=== PATIENT | female | born 1975 | race Caucasian/White ===

== ENCOUNTER 2021-10-30 14:15 | Emergency (ER) | payer SELFPAY ==
[2021-10-30] MEDS ORDERED: Sodium Chloride 0.9% 1,000 ML IV ONE (14:50)
[2021-10-30] MEDS ORDERED: Ondansetron 4 MG/2 ML SDV IVPUSH ONE (14:50)
[2021-10-30] MEDS ORDERED: HYDROmorphone 0.5 MG/0.5 ML Syringe IVPUSH ONE ×3 (14:50→18:13)
--- NOTE | 2021-10-30 15:47 | EDM.PDOC ---
ED HPI GENERAL MEDICAL PROBLEM - General Chief Complaint: Abdominal Pain Stated Complaint: ABDOMINAL PAIN SINCE YESTERDAY 1700 Time Seen by Provider: 10/30/21 14:45 Source of Information: Reports: Patient, Family History Limitations: Reports: No Limitations - History of Present Illness INITIAL COMMENTS - FREE TEXT/NARRATIVE: 46-year-old female with centralized abdominal pain for the past 24 hours. It started last night after supper, kept her awake most of the night and she tried to go to work today but she feels like she is bloated, developing more pain and pressure around the periumbilical area, and has developed some nausea. No radiation of pain, no vomiting. She had a normal bowel movement this morning. No fevers or chills, she does have a history of diverticulitis and also has had a cholecystectomy in the remote past. She is usually healthy. Onset: Gradual Duration: Hour(s): (24 hours of symptoms) Location: Reports: Abdomen (Center of her abdomen, periumbilical) Associated Symptoms: Reports: Other (Mild nausea is her only other symptom) Abdominal Pain Score (Numeric/FACES): 8 - Related Data Allergies Allergy/AdvReac Type Severity Reaction Status Date / Time Penicillins Allergy Tachycardia Verified 10/30/21 14:32 cefuroxime AdvReac Diarrhea Verified 10/30/21 16:53 Home Meds: Home Meds ALPRAZolam [Xanax] 0.25 mg PO TID 05/17/21 [History] Hydrochlorothiazide/Lisinopril [Lisinopril-HCTZ 20-12.5 MG] 1 tab PO DAILY 05/17/21 [History] Omeprazole 20 mg PO DAILY 05/17/21 [History] Venlafaxine [Effexor XR 24 Hr] 37.5 mg PO DAILY 05/17/21 [History] Past Medical History HEENT History: Reports: None Cardiovascular History: Reports: None Respiratory History: Reports: None Gastrointestinal History: Reports: Cholelithiasis, Diverticulosis, GERD HEAD CAGER History: Reports: Musculoskeletal History: Reports: None Neurological History: Reports: None Psychiatric History: Reports: None Endocrine/Metabolic History: Reports: Obesity/BMI 30+ Immunologic History: Reports: None Oncologic (Cancer) History: Reports: None Dermatologic History: Reports: Scleroderma - Infectious Disease History Infectious Disease History: Reports: Chicken Pox - Past Surgical History HEENT Surgical History: Reports: None Cardiovascular Surgical History: Reports: None Respiratory Surgical History: Reports: None GI Surgical History: Reports: Cholecystectomy, Colonoscopy Female Surgical History: Reports: Section Social & Family History - Tobacco Use Tobacco Use Status *Q: Current Every Day Tobacco User Years of Tobacco use: 25 Packs/Tins Daily: 1 - Caffeine Use Caffeine Use Comment: amaya - Recreational Drug Use Recreational Drug Use: No ED ROS GENERAL - Review of Systems Review Of Systems: See Below Constitutional: Reports: Malaise. Denies: Fever, Chills HEENT: Reports: No Symptoms Respiratory: Reports: No Symptoms Cardiovascular: Reports: No Symptoms GI/Abdominal: Reports: Abdominal Pain, Distension, Nausea. Denies: Constipation, Diarrhea, Decreased Appetite, Vomiting : Reports: No Symptoms Skin: Reports: No Symptoms Neurological: Reports: No Symptoms ED EXAM, GI/ABD - Physical Exam Exam: See Below Exam Limited By: No Limitations General Appearance: Alert, Anxious, Mild Distress Eyes: Bilateral: Normal Appearance (No jaundice) Head: Atraumatic Neck: Supple, Non-Tender Respiratory/Chest: Lungs Clear Cardiovascular: Regular Rate, Rhythm, Tachycardia GI/Abdominal Exam: Normal Bowel Sounds, Soft, Guarding (Patient is very tender around the center of the abdomen with moderate guarding and mild rebound tende rness), Tender Neurological: Alert, Oriented Psychiatric: Anxious Skin Exam: Warm, Dry Course - Vital Signs Last Recorded V/S: Last Vital Signs Temp 98.1 F 10/30/21 14:29 Pulse 90 10/30/21 17:46 Resp 18 10/30/21 14:29 BP 107/70 10/30/21 17:46 Pulse Ox 94 L 10/30/21 16:12 - Orders/Labs/Meds Labs: Laboratory Tests 10/30/21 10/30/21 10/30/21 Range/Units 15:00 15:00 15:00 WBC 7.7 (4.5-11.0) K/uL RBC 2.95 L (3.30-5.50) M/uL Hgb 10.5 L (12.0-15.0) g/dL Hct 31.0 L (36.0-48.0) % MCV 105 H (80-98) fL MCH 36 H (27-31) pg MCHC 34 (32-36) % Plt Count 203 (150-400) K/uL Neut % (Auto) 70.4 H (36-66) % Lymph % (Auto) 19.6 L (24-44) % Ada % (Auto) 6.5 H (2-6) % Eos % (Auto) 3.0 (2-4) % Baso % (Auto) 0.5 (0-1) % Sodium 133 L (140-148) mmol/L Potassium 4.1 (3.6-5.2) mmol/L Chloride 96 L (100-108) mmol/L Carbon Dioxide 27 (21-32) mmol/L Anion Gap 14.1 H (5.0-14.0) mmol/L BUN 22 H (7-18) mg/dL Creatinine 1.2 H (0.6-1.0) mg/dL Est Cr Clr Drug Dosing 49.51 mL/min Estimated GFR (MDRD) 48 L (>60) Glucose 101 (74-106) mg/dL Lactic Acid 0.9 (0.4-2.0) mmol/L Calcium 9.5 (8.5-10.1) mg/dL Total Bilirubin 0.8 (0.2-1.0) mg/dL AST 31 (15-37) U/L ALT 47 (12-78) U/L Alkaline Phosphatase 71 (46-116) U/L Total Protein 7.1 (6.4-8.2) g/dL Albumin 3.7 (3.4-5.0) g/dL Globulin 3.4 (2.3-3.5) g/dL Albumin/Globulin Ratio 1.1 L (1.2-2.2) Lipase 56 L (73-393) U/L Urine Color (YELLOW) Urine Appearance (CLEAR) Urine pH (5.0-8.0) Ur Specific [place] (1.008-1.030) Urine Protein (NEGATIVE) mg/dL Urine Glucose (UA) (NEGATIVE) mg/dL Urine Ketones (NEGATIVE) mg/dL Urine Occult Blood (NEGATIVE) Urine Nitrite (NEGATIVE) Urine Bilirubin (NEGATIVE) Urine Urobilinogen (0.2-1.0) EU/dL Ur Leukocyte Esterase (NEGATIVE) Urine RBC (0-5) Urine WBC (0-5) Ur Epithelial Cells Amorphous Sediment Urine Bacteria Urine Mucus 11/30/21 Range/Units 15:37 WBC (4.5-11.0) K/uL RBC (3.30-5.50) M/uL Hgb (12.0-15.0) g/dL Hct (36.0-48.0) % MCV (80-98) fL MCH (27-31) pg MCHC (32-36) % Plt Count (150-400) K/uL Neut % (Auto) (36-66) % Lymph % (Auto) (24-44) % Ada % (Auto) (2-6) % Eos % (Auto) (2-4) % Baso % (Auto) (0-1) % Sodium (140-148) mmol/L Potassium (3.6-5.2) mmol/L Chloride (100-108) mmol/L Carbon Dioxide (21-32) mmol/L Anion Gap (5.0-14.0) mmol/L BUN (7-18) mg/dL Creatinine (0.6-1.0) mg/dL Est Cr Clr Drug Dosing mL/min Estimated GFR (MDRD) (>60) Glucose (74-106) mg/dL Lactic Acid (0.4-2.0) mmol/L Calcium (8.5-10.1) mg/dL Total Bilirubin (0.2-1.0) mg/dL AST (15-37) U/L ALT (12-78) U/L Alkaline Phosphatase (46-116) U/L Total Protein (6.4-8.2) g/dL Albumin (3.4-5.0) g/dL Globulin (2.3-3.5) g/dL Albumin/Globulin Ratio (1.2-2.2) Lipase (73-393) U/L Urine Color Yellow (YELLOW) Urine Appearance Clear (CLEAR) Urine pH 5.5 (5.0-8.0) Ur Specific [place] 1.010 (1.008-1.030) Urine Protein Negative (NEGATIVE) mg/dL Urine Glucose (UA) Negative (NEGATIVE) mg/dL Urine Ketones Negative (NEGATIVE) mg/dL Urine Occult Blood Negative (NEGATIVE) Urine Nitrite Negative (NEGATIVE) Urine Bilirubin Negative (NEGATIVE) Urine Urobilinogen 0.2 (0.2-1.0) EU/dL Ur Leukocyte Esterase Negative (NEGATIVE) Urine RBC Not seen (0-5) Urine WBC Not seen (0-5) Ur Epithelial Cells Few Amorphous Sediment Occasional Urine Bacteria Occasional Urine Mucus Not seen Meds: Medications Discontinued Medications Generic Name Dose Route Start Last Admin Trade Name Monica PRN Reason Stop Dose Admin Hydromorphone HCl 0.5 mg 10/30/21 14:50 10/30/21 15:13 Hydromorphone 0.5 Mg/0.5 Ml Syringe IVPUSH 10/30/21 14:51 0.5 mg ONETIME ONE Administration Hydromorphone HCl 0.5 mg 10/30/21 15:35 10/30/21 15:39 Hydromorphone 0.5 Mg/0.5 Ml Syringe IVPUSH 10/30/21 15:36 0.5 mg ONETIME ONE Administration Hydromorphone HCl 0.5 mg 10/30/21 18:13 10/30/21 18:26 Hydromorphone 0.5 Mg/0.5 Ml Syringe IVPUSH 10/30/21 18:14 0.5 mg ONETIME ONE Administration Sodium Chloride 1,000 mls @ 1,000 mls/hr 10/30/21 14:50 10/30/21 15:11 Normal Saline IV 10/30/21 15:49 1,000 mls/hr .BOLUS ONE Administration Metronidazole 500 mg/ Premix 100 mls @ 100 mls/hr 10/30/21 16:40 10/30/21 17:04 IV 10/30/21 17:39 100 mls/hr ONETIME ONE Administration Trimethoprim/Sulfamethoxazole 520 mls @ 250 mls/hr 10/30/21 18:00 10/30/21 17:11 20 ml/ Dextrose/Water IV 10/30/21 20:04 250 mls/hr ONETIME ONE Administration Ondansetron HCl 4 mg 10/30/21 14:50 10/30/21 15:12 Ondansetron 4 Mg/2 Ml Sdv IVPUSH 10/30/21 14:51 4 mg ONETIME ONE Administration - Re-Assessments/Exams Free Text/Narrative Re-Assessment/Exam: 10/30/21 15:47 IV was started, patient was given 0.5 mg of IV Dilaudid and 4 mg of IV Zofran. 1 L of normal saline was bolused, CBC, CMP, lactic acid and lipase were obtained. CT the abdomen and pelvis without contrast ordered. 10/30/21 17:06 White count was 7700, lactic acid normal but CT was abnormal with what appeared to be fairly extensive early diverticulitis. Results are below IMPRESSION: 1. Extensive sigmoid colonic diverticulosis, with moderate adjacent inflammatory changes, consistent with acute diverticulitis. 2. Heterogeneous mass in the left adnexa/left ovary measuring approximately 5.0 x 4.1 cm, indeterminate. Recommend further evaluation with pelvic ultrasound. 3. Mild circumferential wall thickening of the mid to distal sigmoid colon, which may be secondary to muscular hypertrophy. Recommend correlation with routine colonoscopy upon resolution of acute symptoms. 4. Additional incidental findings including diffuse hepatic steatosis and hepatomegaly. Because the patient was allergic to penicillin, IV Bactrim 20 mils and IV metronidazole 500 mg were given and an ultrasound of the adnexal mass was evaluated. Patient will be discharged on oral antibiotics. Departure - Departure Time of Disposition: 18:36 Disposition: Home, Self-Care 01 Clinical Impression: Diverticulitis Abdominal pain Qualifiers: Abdominal location: lower abdomen, unspecified Qualified Code(s): R10.30 - Lower abdominal pain, unspecified - Discharge Information Instructions: Diverticulitis, [id number] Referrals: Luis Flowers MD [Primary Care Provider] - Forms: ED Department Discharge Care Plan Goals: Take antibiotic at least 7 days as prescribed, up to 10 days if needed. Drink lots of water, consider a stool softener, and use stronger pain medications as needed for breakthrough pain. Consider rechecking in 2 to 3 days if not improving satisfactorily, return anytime if worsening such as vomiting the medication, increased pain or fever persistent. Follow-up with your primary provider in the next 7 to 10 days regarding ultrasound results.
--- NOTE | 2021-10-30 16:35 | CRLCT ---
For Patients: As a result of the Century Cures Act, medical imaging exams and procedure reports are released immediately into your electronic medical record. You may view this report before your referring provider. If you have questions, please contact your health care provider. INDICATION: Abdominal pain. History of diverticulitis. TECHNIQUE: CT abdomen and pelvis without contrast. COMPARISON: None available. FINDINGS: Lower chest: No focal consolidation. Evaluation of solid organs is limited secondary to lack of IV contrast administration. Liver: Diffuse hepatic steatosis. Hepatomegaly. Gallbladder and bile ducts: Postcholecystectomy. Prominent remnant cystic duct is noted. Otherwise, no significant biliary duct dilation. Pancreas: Unremarkable. Spleen: Unremarkable. Adrenal glands: Unremarkable. Kidneys: No hydronephrosis bilaterally. No renal calculi bilaterally. Retroperitoneum: No lymphadenopathy. Bowel and mesentery: Extensive sigmoid colonic diverticulosis, with moderate adjacent inflammatory changes, consistent with acute diverticulitis. There is mild circumferential wall thickening of the mid to distal sigmoid colon. Appendix is normal in caliber. No pneumoperitoneum. Bladder: Unremarkable for degree of distension. Reproductive organs: Posthysterectomy. There is a heterogeneous mass in the left adnexa/left ovary measuring approximately 5.0 x 4.1 cm (series 2, image 142). Pelvic lymph nodes: No lymphadenopathy. Vessels: Unremarkable for unenhanced study. Abdominal wall: No acute abdominal wall abnormality. Bones: Multilevel degenerative changes of the spine. No suspicious/aggressive focal osseous lesion. IMPRESSION: 1. Extensive sigmoid colonic diverticulosis, with moderate adjacent inflammatory changes, consistent with acute diverticulitis. 2. Heterogeneous mass in the left adnexa/left ovary measuring approximately 5.0 x 4.1 cm, indeterminate. Recommend further evaluation with pelvic ultrasound. 3. Mild circumferential wall thickening of the mid to distal sigmoid colon, which may be secondary to muscular hypertrophy. Recommend correlation with routine colonoscopy upon resolution of acute symptoms. 4. Additional incidental findings including diffuse hepatic steatosis and hepatomegaly. Please note that all CT scans at this facility use dose modulation, iterative reconstruction, and/or weight-based dosing when appropriate to reduce radiation dose to as low as reasonably achievable. Dictated by Asim Gomez MD @ 10/30/2021 4:33:15 PM (Electronically Signed)
[2021-10-30] MEDS ORDERED: Sulfamethoxazole/Trimethoprim 20 ML in Dextrose 5% in Water 500 ML IV ONE ×4 (16:40→18:00)
[2021-10-30] MEDS ORDERED: metroNIDAZOLE/Normal Saline 500 MG in Premix Bag 1 BAG IV ONE (16:40)
--- NOTE | 2021-10-30 19:01 | CRLUS ---
For Patients: As a result of the Century Cures Act, medical imaging exams and procedure reports are released immediately into your electronic medical record. You may view this report before your referring provider. If you have questions, please contact your health care provider. INDICATION: Left adnexal mass. TECHNIQUE: Ultrasound pelvis transabdominal and transvaginal for better assessment or to better visualize the endometrium. Real-time sonographic images with spectral and color Doppler imaging of the ovaries were obtained. COMPARISON: CT of abdomen and pelvis from 10/30/2021. FINDINGS: Uterus: Surgically absent. Right ovary measures 3 x 2 x 2.2 cm and left ovary measures 6.3 x 5 x 3.3 cm. Left ovarian mass measures 3 x 2.8 x 3.2 cm and is primarily hyperechoic. No vascular flow to the mass. Normal arterial and venous blood flow is demonstrated in both ovaries. Cul-de-sac: No significant free fluid. IMPRESSION: Left ovarian mass appears solid but does not demonstrate color flow. Consider nonemergent pelvic MRI for further characterization. Dictated by Tristan Waterman MD @ 10/30/2021 7:00:00 PM (Electronically Signed)
--- NOTE | 2021-10-31 09:35 | CRLUS ---
Final Report: INDICATION: Left adnexal mass. TECHNIQUE: Ultrasound pelvis transabdominal and transvaginal for better assessment or to better visualize the endometrium. Real-time sonographic images with spectral and color Doppler imaging of the ovaries were obtained. COMPARISON: CT of abdomen and pelvis from 10/30/2021. FINDINGS: Uterus: Surgically absent. Right ovary measures 3 x 2 x 2.2 cm and left ovary measures 6.3 x 5 x 3.3 cm. Left ovarian mass measures 3 x 2.8 x 3.2 cm and is primarily hyperechoic. No vascular flow to the mass. Normal arterial and venous blood flow is demonstrated in both ovaries. Cul-de-sac: No significant free fluid. IMPRESSION: Left ovarian mass appears solid but does not demonstrate color flow. Consider nonemergent pelvic MRI for further characterization. Dictated by Tristan Waterman MD @ 10/30/2021 7:00:00 PM Signed by: Tristan Waterman MD @10/30/2021 7:00:00 PM (Electronic Signature) MTDD
== END 2021-10-30 19:24 | disposition home or self-care (01) ==
LOC: JP.ED 14:15
DX: K57.92 Diverticulitis of intestine, part unspecified, without perforation or abscess without bleeding (principal); K21.9 Gastro-esophageal reflux disease without esophagitis; E66.9 Obesity, unspecified; Z68.31 Body mass index [BMI] 31.0-31.9, adult; Z72.0 Tobacco use; Z88.0 Allergy status to penicillin; Z88.1 Allergy status to other antibiotic agents; Z79.899 Other long term (current) drug therapy
CPT/HCPCS: 36415; 74176; 76830; 76856; 80053; 81001; 83605; 83690; 85025; 93976; 96365; 96367; 96375; 96376; 99284; J1170; J2405; J3490; J7030; J7060

== ENCOUNTER 2022-12-22 13:27 | Emergency (ER) | payer OTHER ==
[2022-12-22] MEDS ORDERED: HYDROmorphone 1 MG/ML Syringe IM ONE (13:57)
== END 2022-12-22 14:27 | disposition home or self-care (01) ==
LOC: JP.ED 13:27
DX: K57.32 Diverticulitis of large intestine without perforation or abscess without bleeding (principal); F17.210 Nicotine dependence, cigarettes, uncomplicated; E66.9 Obesity, unspecified; Z68.28 Body mass index [BMI] 28.0-28.9, adult; Z88.0 Allergy status to penicillin; Z88.8 Allergy status to other drugs, medicaments and biological substances
CPT/HCPCS: 96372; 99283; J1170